=== PATIENT | female | born 1980 | race Caucasian/White ===

== ENCOUNTER 2016-09-23 12:21 | Emergency (ER) | payer OTHER ==
[~2016-09-23] VITALS: Ht 157.5 cm; Wt 50.0 kg
[2016-09-23 12:27] VITALS: BP 118/61; PULSE 61; TEMP 98
== END 2016-09-23 14:02 | disposition home or self-care (01) ==
LOC: COL.ER 12:21
DX: S61.211A Laceration without foreign body of left index finger without damage to nail, initial encounter (principal); W26.0XXA Contact with knife, initial encounter; Y92.009 Unspecified place in unspecified non-institutional (private) residence as the place of occurrence of the external cause; Z23 Encounter for immunization

== ENCOUNTER 2017-09-26 11:02 | Emergency (ER) | payer OTHER ==
[~2017-09-26] VITALS: Ht 160 cm; Wt 50.0 kg
[2017-09-26 11:55] LABS: ALBUMIN 4.6 gm/dL (3.5-5.0); BILIRUBIN,TOTAL 0.6 mg/dL (0.0-1.0); CALCIUM 9.3 mg/dL (8.4-10.2); CREATININE, serum 0.71 mg/dL (0.52-1.25); POTASSIUM 4.1 mmol/L (3.4-5.0); TOTAL PROTEIN 8.6 gm/dL (6.4-8.2)
[2017-09-26 11:57] LABS: BASO % 0.2 % (0.0-2.0); EOS # 0.1 (0.0-0.7); GRAN # 4.1 (1.4-6.5); GRAN % 81.3 % (42.2-75.2); HEMATOCRIT 38.1 % (37.0-47.0); HEMOGLOBIN 12.6 g/dl (12.5-16.0); LYMPH # 0.5 (1.2-3.4); LYMPH % 9.7 % (20.0-51.0); MEAN CELL VOLUME 85 fl (80.0-100.0); MEAN CORPUSCULAR HEMOGLOBIN 28 pg (27.0-31.0); MEAN CORPUSCULAR HGB CONC 33 g/dl (33.0-37.0); MEAN PLATELET VOLUME 9.6 fl (7.4-10.4); MONO # 0.4 (0.1-0.6); MONO % 7.6 % (1.7-9.3); PLATELET COUNT 221 K/mm3 (130-400); RED BLOOD COUNT 4.48 M/mm3 (4.10-5.30); REDCELL DISTRIBUTION WIDTH-CV 13.2 % (11.5-14.5)
[2017-09-26 12:04] LABS: INFLUENZA A NEGATIVE; INFLUENZA B NEGATIVE
[2017-09-26 14:08] VITALS: BP 110/80; PULSE 106; TEMP 98.9
== END 2017-09-26 13:29 | disposition home or self-care (01) ==
LOC: COL.ER 11:02
PROVIDERS: Family Medicine
DX: B34.9 Viral infection, unspecified (principal); E86.0 Dehydration
CPT/HCPCS: J7030